=== PATIENT | female | born 1995 ===

== ENCOUNTER 2019-09-26 09:57 | Emergency (ER) | payer SELFPAY ==
[~2019-09-26] VITALS: Ht 154 cm; Wt 60.0 kg
--- NOTE | 2019-09-26 12:50 | ED GI ---
General Chief Complaint: Abdominal/GI Problems Stated Complaint: ABD PAIN;POSS Nursing Triage Note: Pt c/o abd pain x1 week. Reports sharp/cramping abd pain. Pt had positive test at home. LMP sometime in April Sepsis Screen: No Definite Risk History of Present Illness Date Seen by Provider: Sep 26, 2019 Time Seen by Provider: 12:30 Initial Comments 24 year old female presents with 1 week of abdominal pain, intermittent in the suprapubic region. She reports persistent positive hCG 1 week ago. She is G3, P3, A0. She denies any vaginal discharge, bleeding, or urinary symptoms. She is unsure of her blood type but denied having to get room drinking shots with her previous pregnancies. She has not been taking any medicine for the pain and is not currently taking any vitamin. Timing/Duration: 1 Week Severity/Quality: Mild Location: Suprapubic Radiation: No Radiation Associated Symptoms: Denies Symptoms Allergies and Home Medications Allergies Coded Allergies: No Known Drug Allergies (Unverified , 09/26/19) Patient Home Medication List Home Medication List Reviewed: Yes Review of Systems Review of Systems Constitutional: no symptoms reported, see HPI Gastrointestinal: See HPI, Abdominal Pain All Other Systems Reviewed Negative Unless Noted: Yes Past Aevjiup-Nhbcnm-Jggojh Hx Past Med/Social Hx: Reviewed Nursing Past Med/Soc Hx Patient Social History Alcohol Use: Denies Use Recreational Drug Use: No Smoking Status: Current Everyday Smoker Type Used: Cigarettes Recent Foreign Travel: No Contact w/Someone Who Travel: No Recent Infectious Disease Expo: No Recent Hopitalizations: No Immunizations Up To Date Date of Influenza Vaccine: Sep 12, 2019 Seasonal Allergies Seasonal Allergies: No Past Medical History Surgeries: Yes Section Respiratory: No Cardiac: No Neurological: No : Yes (per patient home HCG) Last Menstrual Period: Apr 25, 2019 Hx : 3 Hx Para: 3 Hx Total # of Abortions (Sp): 0 Reproductive Disorders: No Female Reproductive Disorders: Denies Genitourinary: No Gastrointestinal: No Musculoskeletal: No Endocrine: No HEENT: No Cancer: No Psychosocial: No Integumentary: No Blood Disorders: No Physical Exam Vital Signs Vital Signs - First Documented 09/26/19 12:04 Temp 36.9 Pulse 82 Resp 16 B/P (MAP) 106/66 (79) Pulse Ox 100 O2 Delivery Room Air Capillary Refill : Less Than 3 Seconds Height/Weight/BMI Height: '" Weight: lbs. oz. kg; 25.00 BMI Method: General Appearance: WD/WN, no apparent distress Respiratory: chest non-tender, lungs clear, normal breath sounds, no respiratory distress Cardiovascular: normal peripheral pulses, regular rate, rhythm Gastrointestinal: normal bowel sounds, soft; No distended, No guarding, No rebound; tenderness (suprapubic) Back: normal inspection, no CVA tenderness, no vertebral tenderness Neurologic/Psychiatric: no motor/sensory deficits, alert, normal mood/affect, oriented x 3 Skin: normal color, warm/dry Lymphatic: no adenopathy Progress/Results/Core Measures Results/Orders Lab Results Laboratory Tests Test 09/26/19 12:45 09/26/19 13:02 Range/Units Urine Color YELLOW Urine Clarity CLEAR Urine pH 8.0 5-9 Urine Specific [place] 1.010 L 1.016-1.022 Urine Protein NEGATIVE NEGATIVE Urine Glucose (UA) NEGATIVE NEGATIVE Urine Ketones NEGATIVE NEGATIVE Urine Nitrite NEGATIVE NEGATIVE Urine Bilirubin NEGATIVE NEGATIVE Urine Urobilinogen 0.2 < = 1.0 MG/DL Urine Leukocyte Esterase NEGATIVE NEGATIVE Urine RBC (Auto) NEGATIVE NEGATIVE Urine RBC RARE /HPF Urine WBC RARE /HPF Urine Squamous Epithelial Cells 0-2 /HPF Urine Crystals NONE /LPF Urine Bacteria NEGATIVE /HPF Urine Casts NONE /LPF Urine Mucus NEGATIVE /LPF Urine Culture Indicated NO Urine Test POSITIVE NEGATIVE White Blood Count 8.7 4.3-11.0 10^3/uL Red Blood Count 3.21 L 4.35-5.85 10^6/uL Hemoglobin 9.2 L 11.5-16.0 G/DL Hematocrit 29 L 35-52 % Mean Corpuscular Volume 89 80-99 FL Mean Corpuscular Hemoglobin 29 25-34 PG Mean Corpuscular Hemoglobin Concent 32 32-36 G/DL Red Cell Distribution Width 16.0 H 10.0-14.5 % Platelet Count 247 130-400 10^3/uL Mean Platelet Volume 9.6 7.4-10.4 FL Neutrophils (%) (Auto) 77 H 42-75 % Lymphocytes (%) (Auto) 17 12-44 % Monocytes (%) (Auto) 5 0-12 % Eosinophils (%) (Auto) 1 0-10 % Basophils (%) (Auto) 0 0-10 % Neutrophils # (Auto) 6.7 1.8-7.8 X 10^3 Lymphocytes # (Auto) 1.5 1.0-4.0 X 10^3 Monocytes # (Auto) 0.4 0.0-1.0 X 10^3 Eosinophils # (Auto) 0.1 0.0-0.3 10^3/uL Basophils # (Auto) 0.0 0.0-0.1 10^3/uL Sodium Level 139 135-145 MMOL/L Potassium Level 3.4 L 3.6-5.0 MMOL/L Chloride Level 108 H 98-107 MMOL/L Carbon Dioxide Level 22 21-32 MMOL/L Anion Gap 9 5-14 MMOL/L Blood Urea Nitrogen 6 L 7-18 MG/DL Creatinine 0.58 L 0.60-1.30 MG/DL Estimat Glomerular Filtration Rate > 60 BUN/Creatinine Ratio 10 Glucose Level 111 H 70-105 MG/DL Calcium Level 9.0 8.5-10.1 MG/DL Corrected Calcium 9.2 8.5-10.1 MG/DL Total Bilirubin 0.4 0.1-1.0 MG/DL Aspartate Amino Transf (AST/SGOT) 19 5-34 U/L Alanine Aminotransferase (ALT/SGPT) 17 0-55 U/L Alkaline Phosphatase 55 40-136 U/L Total Protein 6.9 6.4-8.2 GM/DL Albumin 3.7 3.2-4.5 GM/DL Human Chorionic Gonadotropin, Quant 67921 H <5 MIU/ML My Orders Orders - CADE MCCORMICK Ua Culture If Indicated (09/26/19 11:44) Cbc With Automated Diff (09/26/19 12:44) Comprehensive Metabolic Panel (09/26/19 12:44) Hcg,Qualitative Urine (09/26/19 12:44) Hcg,Quantitative (09/26/19 12:44) Abo Rh Type (09/26/19 12:44) Us Ob Preg Late(14-40wks)48747 (09/26/19 13:12) Vital Signs/I&O 09/26/19 09/26/19 12:04 14:50 Temp 36.9 36.8 Pulse 82 80 Resp 16 16 B/P (MAP) 106/66 (79) 96/67 Pulse Ox 100 100 O2 Delivery Room Air Room Air Blood Pressure Mean: 79 POS Progress Progress Note : Time: 12:30 Progress Note Patient evaluated, will obtain labs. If positive hCG will obtain ultrasound. 1400 blood type O+. Labs all within normal limits. Awaiting ultrasound results. 1430 US shows approximately 19 week gestation with no acute abnormalities. Results discussed with the patient. Discharge instructions and return precautions reviewed. Diagnostic Imaging Diagonstic Imaging: Ultrasound Comments NAME: RAJIV LARA [facility] REC#: [id number] PHYSICIAN: CADE MCCORMICK CC: AGUSTIN GILLILAND MD; CADE MCCORMICK Page 2 of 2 POS RADIOLOGY REPORT POS [facility]. POS [place], [place] POS CC: AGUSTIN GILLILAND MD; CADE MCCORMICK Page 1 of 2 POS RADIOLOGY REPORT POS NAME: RAJIV LARA [facility] REC#: [id number] PT STATUS: DEP ER : 1995 PHYSICIAN: CADE MCCORMICK ADMIT DATE: 09/26/19/ER Signed POSDate of Exam: 09/26/19 US OB PREG LATE(14-40WKS)[id number] INDICATION: Abdominal pain. TECHNIQUE: Multiple Real-time grayscale images were obtained over the gravid uterus. COMPARISON: None FINDINGS: There is a single live fetus in a cephalic presentation. The heart rate was recorded at 150 BPM. The placenta is anterior. The amniotic fluid volume is normal. Only a limited survey was performed. The kidneys, bladder, and stomach are unremarkable. There is a 4 chamber heart. A tiny echogenic focus in the left ventricle is seen. The maternal adnexa are unremarkable. MEASUREMENTS: Biometrical measurements are as follows: Biparietal 4.45 cm, age 19 weeks 4 days. Head circumference 16.73 cm, age 19 weeks 3 days. Abdominal circumference 14.28 cm, age 19 weeks 5 days. Femur length 3.06 cm, age 19 weeks 4 days. Sonographic estimate age: 19 weeks 4 days. Sonographic estimated date of delivery: 02/16/2020. Estimated Weight: 298 gm (+/- 44 gm). LMP percentile: 61%. heart rate: 150 beats per minute. number: 1 of 1. IMPRESSION: Single live IUP at 19 weeks 4 days gestational age. The estimated date of confinement sonographically is 02/16/2020. No definite complicating features are seen. Dictated by: Dictated on workstation # [id number] Dict: 09/26/19 1436 Trans: 09/26/19 1539 Interpreted by: AGUSTIN GILLILAND MD Electronically signed by: AGUSTIN GILLILAND MD 09/26/19 1539 Reviewed: Reviewed by Me Departure Impression Primary Impression: Qualified Codes: Z34.90 - Encounter for supervision of normal , unspecified, unspecified trimester Additional Impression: Lower abdominal pain Disposition: HOME, SELF-CARE Condition: Improved Departure-Patient Inst. Decision time for Depature: 14:30 Referrals: NO,LOCAL PHYSICIAN (PCP) Primary Care Physician [facility] Patient Instructions: Acute Abdomen (Belly Pain), Adult (DC), - The First Month Add. Discharge Instructions: Begin taking a vitamin, one daily. Establish care with an EMBALMER APPRENTICE. You may take Tylenol 650 mg every 8 hours for pain. All discharge instructions reviewed with patient and/or family. Voiced understanding. CADE MCCORMICK Sep 26, 2019 12:50 POS
[2019-09-26 12:52] LABS: BILIRUBIN,URINE NEGATIVE (NEGATIVE); CLARITY,URINE CLEAR; COLOR,URINE YELLOW; GLUCOSE, URINE (UA) NEGATIVE (NEGATIVE); KETONES,URINE NEGATIVE (NEGATIVE); LEUKOCYTE ESTERASE ,URINE NEGATIVE (NEGATIVE); NITRITE,URINE NEGATIVE (NEGATIVE); PROTEIN,URINE NEGATIVE (NEGATIVE)
[2019-09-26 12:59] LABS: BACTERIA,URINE NEGATIVE /HPF; RBC,URINE RARE /HPF; SQUAMOUS EPITHELIAL CELL,UR 0-2 /HPF; WBC,URINE RARE /HPF
[2019-09-26 13:09] LABS: BASOPHILS % (AUTO) 0 % (0-10); EOSINOPHILS # (AUTO) 0.1 10^3/uL (0.0-0.3); EOSINOPHILS % (AUTO) 1 % (0-10); HEMATOCRIT 29 % (35-52); HEMOGLOBIN 9.2 G/DL (11.5-16.0); LYMPHOCYTES # (AUTO) 1.5 X 10^3 (1.0-4.0); LYMPHOCYTES % (AUTO) 17 % (12-44); MEAN CORPUSCULAR HEMOGLOBIN 29 PG (25-34); MEAN CORPUSCULAR HGB CONC 32 G/DL (32-36); MEAN CORPUSCULAR VOLUME 89 FL (80-99); MEAN PLATELET VOLUME 9.6 FL (7.4-10.4); MONOCYTES # (AUTO) 0.4 X 10^3 (0.0-1.0); MONOCYTES % (AUTO) 5 % (0-12); NEUTROPHILS # (AUTO) 6.7 X 10^3 (1.8-7.8); NEUTROPHILS % (AUTO) 77 % (42-75); PLATELET COUNT 247 10^3/uL (130-400); WHITE BLOOD COUNT 8.7 10^3/uL (4.3-11.0)
[2019-09-26 13:35] LABS: ALANINE AMINOTRANSFERASE 17 U/L (0-55); ALBUMIN 3.7 GM/DL (3.2-4.5); ALKALINE PHOSPHATASE 55 U/L (40-136); BILIRUBIN,TOTAL 0.4 MG/DL (0.1-1.0); BUN/CREATININE RATIO 10; CARBON DIOXIDE 22 MMOL/L (21-32); CHLORIDE 108 MMOL/L (98-107); CREATININE SERUM 0.58 MG/DL (0.60-1.30); GFR ESTIMATED > 60; GLUCOSE 111 MG/DL (70-105); POTASSIUM 3.4 MMOL/L (3.6-5.0); SODIUM 139 MMOL/L (135-145); TOTAL PROTEIN 6.9 GM/DL (6.4-8.2)
--- NOTE | 2019-09-26 13:59 | NUR ---
Patient taken to Ultrasound via wheelchair.
--- NOTE | 2019-09-26 14:46 | Diagnostic Imaging Report ---
INDICATION: Abdominal pain. TECHNIQUE: Multiple Real-time grayscale images were obtained over the gravid uterus. COMPARISON: None FINDINGS: There is a single live fetus in a cephalic presentation. The heart rate was recorded at 150 BPM. The placenta is anterior. The amniotic fluid volume is normal. Only a limited survey was performed. The kidneys, bladder, and stomach are unremarkable. There is a 4 chamber heart. A tiny echogenic focus in the left ventricle is seen. The maternal adnexa are unremarkable. MEASUREMENTS: Biometrical measurements are as follows: Biparietal 4.45 cm, age 19 weeks 4 days. Head circumference 16.73 cm, age 19 weeks 3 days. Abdominal circumference 14.28 cm, age 19 weeks 5 days. Femur length 3.06 cm, age 19 weeks 4 days. Sonographic estimate age: 19 weeks 4 days. Sonographic estimated date of delivery: 02/16/2020. Estimated Weight: 298 gm (+/- 44 gm). LMP percentile: 61%. heart rate: 150 beats per minute. number: 1 of 1. IMPRESSION: Single live IUP at 19 weeks 4 days gestational age. The estimated date of confinement sonographically is 02/16/2020. No definite complicating features are seen. Dictated by: Dictated on workstation # [id number]
[2019-09-26 14:50] VITALS: BP 96/67
== END 2019-09-26 14:54 | disposition home or self-care (01) ==
LOC: ER 09:59
DX: O26.892 Other specified pregnancy related conditions, second trimester (principal); R10.30 Lower abdominal pain, unspecified; O99.332 Smoking (tobacco) complicating pregnancy, second trimester; F17.210 Nicotine dependence, cigarettes, uncomplicated; Z3A.19 19 weeks gestation of pregnancy
CPT/HCPCS: 36415; 76805; 80053; 81000; 84702; 84703; 85025; 86900; 86901

== ENCOUNTER 2019-12-30 12:09 | Outpatient (CLI) | payer MEDICAID ==
[~2019-12-30] VITALS: Ht 154.9 cm; Wt 73.2 kg
--- NOTE | 2019-12-30 12:15 | NUR ---
RAJIV LARA presented to unit via from ED, accompanied by self, with c/o VAGINAL BLEEDING. RAJIV LARA weighed, gowned, voided, and to bed. EFHM and TOCO applied, VS taken. RAJIV LARA oriented to bed controls, call light, TV, heat, and A/C controls.
[2019-12-30 12:45] VITALS: BP 105/56
--- NOTE | 2019-12-30 13:55 | NUR ---
EFM removed. reviewed plan for d/c home. 4 contractions noted right after cervical exam. no further contractions noted for the last hour.
--- NOTE | 2019-12-30 13:55 | NUR ---
reactive NST. accelerations noted. no decelerations, 130 fhr baseline.
--- NOTE | 2019-12-30 14:10 | NUR ---
out of WS via ambulation to private vehicle to home care d/c instructions in hand. no s/s of distress noted.
--- NOTE | 2020-01-02 08:07 | Physician Query-Final Dx ---
Clinic Account Progress/Dx Physician Query: Please give diagnosis Please include # weeks gestation Date of Service Dec 30, 2019 at 12:09 DIANNA MORAES Jan 02, 2020 08:07
== END 2019-12-30 14:10 | disposition home or self-care (01) ==
LOC: WSo 12:09 → LDRP 12:15 → WSo 14:10
PROVIDERS: ATTEND Family Medicine
DX: O46.90 Antepartum hemorrhage, unspecified, unspecified trimester (principal); Z3A.00 Weeks of gestation of pregnancy not specified
CPT/HCPCS: 99213

== ENCOUNTER 2020-02-10 05:29 | Outpatient (CLI) | payer MEDICAID ==
[~2020-02-10] VITALS: Ht 154 cm; Wt 73.6 kg
[2020-02-10] MEDS ORDERED: FERR-84 PO (12:23)
[2020-02-10] MEDS ORDERED: PREN1TAB79 PO (12:23)
[2020-02-13] MEDS ORDERED: HYDR-4226 PO (07:18)
[2020-02-13] MEDS ORDERED: IBUP-844 PO (07:18)
[2020-02-13] MEDS ORDERED: DCS100C PO (07:18)
== END 2020-02-10 12:40 | disposition home or self-care (01) ==
LOC: PREOP 05:29
PROVIDERS: ATTEND Obstetrics & Gynecology
DX: Z01.818 Encounter for other preprocedural examination (principal)

== ENCOUNTER 2020-02-13 06:37 | Inpatient (IN) | payer MEDICAID ==
[2020-02-13] VITALS (12 sets, daily range): BP systolic 98–137; BP diastolic 55–83
[~2020-02-13] VITALS: Ht 154 cm; Wt 75.0 kg
--- NOTE | 2020-02-13 06:35 | NUR ---
RAJIV LARA presented to unit via from ED, , with c/o PREVIOUS. RAJIV LARA 39 11/22 weighed, gowned, voided, and to bed. EFHM and TOCO applied, VS taken. RAJIV LARA oriented to bed controls, call light, TV, heat, and A/C controls.
[~2020-02-13 06:37] MED LIST: CITRIC ACID/SOB CIT (BICITRA) 30 ML UDC ONE; FAMOTIDINE 20MG/2ML IV (PEPCID) ONE; FERR-84 PO; LACTATED RINGERS 1,000 ML IV ONE; METOCLOPRAMIDE INJ 10 MG/2 ML (REGLAN) ONE; PREN1TAB79 PO; ceFAZolin 2 GM IV Premixed 50 ML ONE
--- OUTSIDE RECORDS SUMMARY | 2020-02-13 06:41 | XMS REPORT | Continuity of Care Document ---
Author Organization Unknown Address Unknown Phone Unavailable Allergies Active Description Code Type Severity Reaction Onset Reported/Identified Relationship to Patient Clinical Status Yes No Known Drug Allergies [id number] Drug Allergy Unknown N/A 02/10/2020 Medications There is no data. Problems Date Dx Coded Attending Type Code Diagnosis Diagnosed By 09/26/2019 ANNY, CADE COLOR TECHNICIAN Ot F17.210 NICOTINE DEPENDENCE, CIGARETTES, UNCOMPL 09/26/2019 ANNY, CADE COLOR TECHNICIAN Ot O26.892 OT RELATED CONDITIONS, SECOND 09/26/2019 ANNY, CADE COLOR TECHNICIAN Ot O99.332 SMOKING (TOBACCO) COMPLICATING 09/26/2019 ANNY, CADE COLOR TECHNICIAN Ot R10.30 LOWER ABDOMINAL PAIN, UNSPECIFIED 09/26/2019 ANNY, CADE COLOR TECHNICIAN Ot Z3A.19 19 WEEKS GESTATION OF 09/28/2019 ANNY CADE COLOR TECHNICIAN Ot F17.210 NICOTINE DEPENDENCE, CIGARETTES, UNCOMPL 09/28/2019 ANNY, CADE COLOR TECHNICIAN Ot O26.892 OT RELATED CONDITIONS, SECOND 09/28/2019 ANNY, CADE COLOR TECHNICIAN Ot O99.332 SMOKING (TOBACCO) COMPLICATING 09/28/2019 ANNY, CADE COLOR TECHNICIAN Ot R10.30 LOWER ABDOMINAL PAIN, UNSPECIFIED 09/28/2019 ANNY, CADE COLOR TECHNICIAN Ot Z3A.19 19 WEEKS GESTATION OF 12/30/2019 STEIN DO, ROSHNI K Ot O46.90 ANTEPARTUM HEMORRHAGE, UNSPECIFIED, UNSP 12/30/2019 STEIN DO, ROSHNI K Ot Z3A.00 WEEKS OF GESTATION OF NOT SPEC 01/03/2020 STEIN DO, ROSHNI K Ot O46.90 ANTEPARTUM HEMORRHAGE, UNSPECIFIED, UNSP 01/03/2020 STEIN DO, ROSHNI K Ot Z3A.00 WEEKS OF GESTATION OF NOT SPEC Procedures There is no data. Results Test Result Range Complete urinalysis with reflex to cultu re - 09/26/19 12:45 Urine color determination YELLOW NRG Urine clarity determination CLEAR NR G Urine pH measurement by test strip 8.0 5-9 Specific gravity of urine by test strip 1.010 1.016-1.022 Urine protein assay by test strip, semi-quantitative NEGATIVE NEGATIVE Urine glucose detection by automated test strip NE GATIVE NEGATIVE Erythrocytes detection in urine sediment by light micr oscopy NEGATIVE NEGATIVE Urine ketones detection by automated test strip NE GATIVE NEGATIVE Urine nitrite detection by test strip NEGATIVE NEGATIVE Urine total bilirubin detection by test strip NEGA TIVE NEGATIVE Urine urobilinogen measurement by automated test strip (mass/volume) 0.2 mg/dL < = 1.0 Urine leukocyte esterase detection by dipstick NEG ATIVE NEGATIVE Automated urine sediment erythrocyte cou nt by microscopy (number/high power field) RARE NRG Automated urine sediment leukocyte count by microscopy (number/high power field) RARE NRG Bacteria detection in urine sediment by light microsco py NEGATIVE NRG Squamous epithelial cells detection in u rine sediment by light microscopy 0-2 NRG Crystals detection in urine sediment by light microsco py NONE NRG Casts detection in urine sediment by light microscopy NONE NRG Mucus detection in urine sediment by light microscopy NEGATIVE NRG Complete urinalysis with reflex to culture NO NRG Urine beta human chorionic gonadotropin (hCG) measurement - 09/26/19 12:45 Urine beta human chorionic gonadotropin (hCG) measurem ent POSITIVE NEGATIVE Complete blood count (CBC) with automate d white blood cell (WBC) differential - 09/26/19 13:02 Blood leukocytes automated count (number/volume) 8.7 10*3/uL 4.3-11.0 Blood erythrocytes automated count (number/volume) 3.21 10*6/uL 4.35-5.85 Venous blood hemoglobin measurement (mass/volume) 9.2 g/dL 11.5-16.0 Blood hematocrit (volume fraction) 29 % 35-52 Automated erythrocyte mean corpuscular volume 89 [ foz_us] 80-99 Automated erythrocyte mean corpuscular h emoglobin (mass per erythrocyte) 29 pg 25-34 Automated erythrocyte mean corpuscular h emoglobin concentration measurement (mass/volume) 32 g/dL 32-36 Automated erythrocyte distribution width ratio 16. 0 % 10.0- 14.5 Automated blood platelet count (count/volume) 247 10*3/uL 130-400 Automated blood platelet mean volume measurement 9.6 [foz_us] 7.4-10.4 Automated blood neutrophils/100 leukocytes 77 % 42-75 Automated blood lymphocytes/100 leukocytes 17 % 12-44 Blood monocytes/100 leukocytes 5 % 0-12 Automated blood eosinophils/100 leukocytes 1 % 0-10 Automated blood basophils/100 leukocytes 0 % 0-10 Blood neutrophils automated count (number/volume) 6.7 10*3 1.8-7.8 Blood lymphocytes automated count (number/volume) 1.5 10*3 1.0-4.0 Blood monocytes automated count (number/volume) 0. 4 10*3 0.0-1.0 Automated eosinophil count 0.1 10*3/uL 0 .0-0.3 Automated blood basophil count (count/volume) 0.0 10*3/uL 0.0-0.1 ABO+Rh group - 09/26/19 13:02 WRISTBAND NUMBER BC [id number] NR ABO+Rh group OP NR Comprehensive metabolic panel - 09/26/19 13:02 Serum or plasma sodium measurement (moles/volume) 139 mmol/L 135-145 Serum or plasma potassium measurement (moles/volume) 3.4 mmol/L 3.6-5.0 Serum or plasma chloride measurement (moles/volume) 108 mmol/L 98-107 Carbon dioxide 22 mmol/L 21-32 Serum or plasma anion gap determination (moles/volume) 9 mmol/L 5-14 Serum or plasma urea nitrogen measurement (mass/volume ) 6 mg/dL 7-18 Serum or plasma creatinine measurement (mass/volume) 0.58 mg/dL 0.60-1.30 Serum or plasma urea nitrogen/creatinine mass ratio 10 NRG Serum or plasma creatinine measurement w ith calculation of estimated glomerular filtration rate > NRG Serum or plasma glucose measurement (mass/volume) 111 mg/dL 70-105 Serum or plasma calcium measurement (mass/volume) 9.0 mg/dL 8.5-10.1 Serum or plasma total bilirubin measurement (mass/volu me) 0.4 mg/dL 0.1-1.0 Serum or plasma alkaline phosphatase tamiko surement (enzymatic activity/volume) 55 U/L 40-136 Serum or plasma aspartate aminotransfera se measurement (enzymatic activity/volume) 19 U/L 5-34 Serum or plasma alanine aminotransferase measurement (enzymatic activity/volume) 17 U/L 0-55 Serum or plasma protein measurement (mass/volume) 6.9 g/dL 6.4-8.2 Serum or plasma albumin measurement (mass/volume) 3.7 g/dL 3.2-4.5 CALCIUM CORRECTED 9.2 mg/dL 8.5-10.1 Serum or plasma choriogonadotropin measu rement (units/volume) - 09/26/19 13:02 Serum or plasma choriogonadotropin measurement (units/ volume) 84742 m[iU]/mL <5 Encounters ACCT No. Visit Date/Time Discharge Status Pt. Type Provider Facility Loc./Unit Complaint [id number] 02/10/2020 05:29:00 020 12:40:00 DIS Outpatient DIONISIO DONG DO [facility] PREOP PREVIOUS [id number] 12/30/2019 12:09:00 020 14:10:00 DIS Outpatient ROSHNI STEIN DO [facility] WSo VAGINAL BLEEDING [id number] 09/26/2019 09:59:00 019 14:54:00 DIS Emergency CADE MCCORMICK [facility] ER ABD PAIN;POSS [id number] 02/13/2020 07:30:00 P EN Preadmit DIONISIO DONG DO PREVIOUS
[2020-02-13] MEDS ORDERED: ceFAZolin 2 GM IV Premixed 50 ML IV ONE ×2 (06:45→08:30)
[2020-02-13] MEDS ORDERED: CITRIC ACID/SOB CIT (BICITRA) 30 ML UDC PO ONE (06:45)
[2020-02-13] MEDS ORDERED: CATHETER FLUSH 10 ML SYR IV PRN (06:45)
[2020-02-13] MEDS ORDERED: METOCLOPRAMIDE INJ 10 MG/2 ML (REGLAN) IV ONE (06:45)
[2020-02-13 06:56] LABS: BASOPHILS % (AUTO) 0 % (0-10); EOSINOPHILS # (AUTO) 0.1 10^3/uL (0.0-0.3); EOSINOPHILS % (AUTO) 1 % (0-10); HEMATOCRIT 25 % (35-52); HEMOGLOBIN 7.4 G/DL (11.5-16.0); LYMPHOCYTES # (AUTO) 2.1 X 10^3 (1.0-4.0); LYMPHOCYTES % (AUTO) 28 % (12-44); MEAN CORPUSCULAR HEMOGLOBIN 24 PG (25-34); MEAN CORPUSCULAR HGB CONC 30 G/DL (32-36); MEAN CORPUSCULAR VOLUME 80 FL (80-99); MEAN PLATELET VOLUME 10.4 FL (7.4-10.4); MONOCYTES # (AUTO) 0.6 X 10^3 (0.0-1.0); MONOCYTES % (AUTO) 8 % (0-12); NEUTROPHILS # (AUTO) 4.8 X 10^3 (1.8-7.8); NEUTROPHILS % (AUTO) 63 % (42-75); PLATELET COUNT 301 10^3/uL (130-400); RED CELL DISTRIBUTION WIDTH 16.4 % (10.0-14.5); WHITE BLOOD COUNT 7.6 10^3/uL (4.3-11.0)
--- NOTE | 2020-02-13 07:07 | History & Physical-OB ---
OB - Chief Complaint & HPI Date/Time Date of Admission: Date of Admission: Feb 13, 2020 at 06:37 Date seen by a Provider: Feb 13, 2020 Time Seen by a Provider: 07:05 Chief Complaint/History OB-Reason for Admission/Chief: Section Hx : 4 Hx Para: 3 Expected Date of Delivery: Feb 19, 2020 Indication for : desires repeat Other reason for admission: Patient has sought PNC with [facility] and Dr. Escobar. Reports no concerns with , complicated by need for RLTCS and smoking. Admission Nurse Assessment Rev: Yes Allergies and Home Medications Allergies Coded Allergies: No Known Drug Allergies (Unverified , 02/10/20) Home Medications Ferrous Sulfate 325 Mg Tablet, 325 MG PO DAILY, (Reported) Vit W-Ca,Fe,FA(<1 mg) 1 Each Tablet, 1 EACH PO DAILY, (Reported) Patient Home Medication List Home Medication List Reviewed: Yes OB - History Hx of Present Care: Yes Ultrasounds: Normal mid trimester US Obstetrical Complications: None Medical Complications: None Delivery History Adverse Rxn to Tranfusion: No (N/A) Patient Past Medical History n/a Social History/Family History HIV/AIDS: No Recent Infectious Disease Expo: No Sexually Transmitted Disease: No Alcohol Use: Denies Use Recreational Drug Use: No 2nd Hand Smoke Exposure: Yes Immunizations Date of Influenza Vaccine: Aug 22, 2019 OB - Admission Exam Physical Exam HEENT: NCAT Heart: Rhythm Normal Lungs: Clear Abdomen: Gravid Extremities: Normal Reflexes: Normal Heart Rate: 130's Accelerations: Accelerations Present Decelerations: No Decelerations Short Term Variability: Present Assistant Center Director Variability: Average (6-25) Contractions on Admission: >10 Minutes Apart Intensity: Mild Labs Laboratory Tests Test 02/13/20 06:40 Range/Units White Blood Count 7.6 4.3-11.0 10^3/uL Red Blood Count 3.10 L 4.35-5.85 10^6/uL Hemoglobin 7.4 L 11.5-16.0 G/DL Hematocrit 25 L 35-52 % Mean Corpuscular Volume 80 80-99 FL Mean Corpuscular Hemoglobin 24 L 25-34 PG Mean Corpuscular Hemoglobin Concent 30 L 32-36 G/DL Red Cell Distribution Width 16.4 H 10.0-14.5 % Platelet Count 301 130-400 10^3/uL Mean Platelet Volume 10.4 7.4-10.4 FL Neutrophils (%) (Auto) 63 42-75 % Lymphocytes (%) (Auto) 28 12-44 % Monocytes (%) (Auto) 8 0-12 % Eosinophils (%) (Auto) 1 0-10 % Basophils (%) (Auto) 0 0-10 % Neutrophils # (Auto) 4.8 1.8-7.8 X 10^3 Lymphocytes # (Auto) 2.1 1.0-4.0 X 10^3 Monocytes # (Auto) 0.6 0.0-1.0 X 10^3 Eosinophils # (Auto) 0.1 0.0-0.3 10^3/uL Basophils # (Auto) 0.0 0.0-0.1 10^3/uL OB - Assessment/Plan/Diagnosis Assessment Assessment: section Admission Dx 25 yo @ 39.1 Previous Tobacco use in Admission Status: Inpatient Order (span 2 midnights) Reason for Inpatient Admission: Repeat DIONISIO DONG DO Feb 13, 2020 07:07
[2020-02-13] MEDS ORDERED: fentaNYL INJECTION 100 MCG/2 ML AMP ONE (07:09)
[2020-02-13] MEDS ORDERED: METHYLERGONOVINE 0.2 MG/ML (METHERGINE) AMP ONE (07:12)
[2020-02-13] MEDS: KETOROLAC 30 MG/ML VIAL IV SCH ×4 (07:12→23:56)
[2020-02-13] MEDS ORDERED: OXYTOCIN PRE-MIX DRIP 1,000 ML IV ONE (07:12)
[2020-02-13] MEDS ORDERED: MEASLES,MUMPS,RUBELLA 1 EA INJ SC SCH (07:15)
[2020-02-13] MEDS ORDERED: ONDANSETRON 4 MG/2 ML (SDV) Z0FRAN IVP PRN (07:15)
[2020-02-13] MEDS ORDERED: TETANUS,DIPTH,PERTUSS P/F (BOOSTRIX) 0.5 ML VIAL IM SCH (07:15)
[2020-02-13] MEDS ORDERED: HYDR-4226 PO (07:18)
[2020-02-13] MEDS ORDERED: DCS100C PO (07:18)
[2020-02-13] MEDS ORDERED: IBUP-844 PO (07:18)
--- NOTE | 2020-02-13 07:23 | Discharge Inst-Women's Service ---
Discharge Inst-Women's Serv Depart Medication/Instructions New, Converted or Re-Newed RX: RX on Chart Final Diagnosis POD 2 RLTCS Problems Reviewed?: Yes Consults/Follow Up Additional Follow Up: Yes Orders/Referrals Dr. Dong in 7-10 days and in 8 weeks Activity Activity: Activity as Tolerated Driving Instructions: No Driving for 1 Week NO SMOKING: NO SMOKING Nothing Inside Vagina: No Douching, No [place], No Tampons Diet Discharge Diet: No Restrictions Symptoms to Report to : Bleeding Excessive, Pain Increased, Fever Over 101 Degrees F, Vaginal Bleeding Increase, Questions/Concerns DIONISIO DONG DO Feb 13, 2020 07:23
--- NOTE | 2020-02-13 07:34 | NUR ---
Pt ambulated to surgery suite. Accompanied via Sunni Paez RN. IV infusing with out difficulty.
[2020-02-13] MEDS ORDERED: ONDANSETRON 4 MG/2 ML (SDV) Z0FRAN ONE (08:11)
[2020-02-13] MEDS ORDERED: BUPIVACAINE 0.5% 30 ML (SENSORCAINE) VIAL ONE (08:11)
[2020-02-13] MEDS: DOCUSATE SODIUM 100 MG (COLACE) CAP PO SCH ×2 (09:00→19:43)
[2020-02-13] MEDS ORDERED: NALOXONE 0.4 MG/ML 1 ML (NARCAN) VIAL IV PRN (09:15)
[2020-02-13] MEDS ORDERED: ONDANSETRON 4 MG/2 ML (SDV) Z0FRAN IV PRN (09:15)
[2020-02-13] MEDS ORDERED: diphenhydrAMINE 50 MG/ML INJ (BENADRYL) IV PRN (09:15)
--- NOTE | 2020-02-13 09:50 | NUR ---
Soco care and pad change in PACU.
--- NOTE | 2020-02-13 10:00 | NUR ---
Pt to room 307 via bed. Pt awake and alert. IV infusing without difficulty. Call light within reach. calf scd's on. Bed rails up x 2. Pt oriented to room and given education folder with instruction. Pt verbalizes understanding.
[2020-02-13] MEDS: METOCLOPRAMIDE 10 MG (REGLAN) TAB PO SCH ×2 (11:12→18:43)
[2020-02-13] MEDS: HYDROcodone/APAP 5 MG/325 MG (LORTAB) TAB PO PRN ×2 (11:13→16:34)
[2020-02-13] MEDS ORDERED: OXYTOCIN PRE-MIX DRIP 500 ML IV SCH ×2 (11:30)
[2020-02-13] MEDS: CATHETER FLUSH 10 ML SYR IV SCH ×2 (14:00→18:44)
--- NOTE | 2020-02-13 16:08 | NUR ---
Pt up to BR without difficulty. Voided 600 cc of blood tinged urine. Pt stable on. no concerns voiced. julian care done via pt.
--- NOTE | 2020-02-13 16:14 | OPERATIVE REPORT ---
DATE OF SERVICE: PREOPERATIVE DIAGNOSES: 1. A 25-year-old G4, P3 at 39 weeks gestation. 2. Previous section. POSTOPERATIVE DIAGNOSES: 1. A 25-year-old G4, P3 at 39 weeks gestation. 2. Previous section. PROCEDURE: Repeat low transverse section. SURGEON: Jose Wilkins DO GLOBAL TRANSPORTATION MANAGER: Dr. Diego Escobar, who was necessary for retraction and manipulation throughout the procedure. ANESTHESIA: Spinal. ESTIMATED BLOOD LOSS: 600 mL. URINE OUTPUT: 100 mL clear at the end of procedure. FLUIDS: Two liters of lactated Ringer's solution. FINDINGS: A live female infant weighing 8 pounds 1 ounce, Apgars of 8 and 9. Grossly normal appearing uterus, bilateral fallopian tubes and ovaries. SPECIMEN SENT: None. INDICATIONS FOR PROCEDURE: This 25-year-old female is a patient that was consulted to me from Dr. Escobar for repeat . In her preoperative consultation, the patient reported that her was uncomplicated with the exception of tobacco use throughout the . I discussed with the patient the risks of the surgery in detail, which she was familiar with including risk of bleeding, infection, damage to surrounding structures including, but not limited to bowel, bladder, ureter, kidneys, risk from anesthesia, hospital stay and possible need for reoperation and even . After everything was discussed with the patient in detail, consent was obtained in the preoperative area and the patient was taken to the operating room. OPERATIVE REPORT IN DETAIL: Once in the operating room, spinal anesthesia was found to be adequate, she was placed in supine position with a leftward tilt, prepped and draped in a normal sterile fashion. A timeout was performed and anesthesia was tested. I then proceeded to make a Pfannenstiel skin incision to the previously existing scar using a knife and carried down to underlying fascia using Bovie cautery. The fascial incision was extended laterally using Bovie cautery. The superior aspect of the fascial incision was then grasped with Ronna clamps, tented upward and dissected off the underlying rectus muscles. The inferior aspect of the fascial incision was then grasped with Ronna clamps, tented upward and dissected off the underlying rectus muscles. Rectus muscle was then dissected down the midline, which exposed the peritoneum, which I entered bluntly and extended using blunt traction. The peritoneum was densely scarred to the rectus muscles as well. Once I had peritoneal access, I extended this with blunt traction staying clear of the bladder and placed the Wilian ring retractor within the peritoneal incision, which offers excellent lateral sidewall retraction. I then proceeded with making a low transverse incision to the vesicouterine peritoneum using a knife and bluntly dissected this off of the lower uterine segment. I then proceeded with myotomy until membranes were visualized, at which point I extended the uterine incision laterally and superiorly using bandage scissors. Amniotomy was performed in this process as well. The infant was found in the vertex presentation and clear fluid was noted. With gentle fundal pressure, the infant's head was delivered through the incision where the nares and oropharynx were then bulb suctioned. Anterior and posterior shoulders were delivered. The was then brought to the operative field where the cord was doubly clamped and cut and infant was handed off to Dr. Escobar, who was present for delivery. Cord blood was collected, 3-vessel cord with intact placenta was delivered spontaneously thereafter. IV Pitocin was initiated to facilitate uterine contraction. Uterine fundus became firmer by manual massage. The uterus was then exteriorized and cleared of all endometrial clots and debris. I then proceeded with closing the uterine incision using 0 Vicryl suture in running locked fashion. Second layer of imbricating 0 Monocryl was placed. Excellent hemostasis was noted after doing this. I then placed the uterus back within the pelvis and copiously irrigated the pelvis using normal saline. Once again, there was no active bleeding noted from any of my dissection planes. I placed Interceed antiadhesive over my low transverse incision and proceeded with closing the peritoneum and rectus muscles in one layer using 3-0 Vicryl suture in a running fashion. The fascia was reapproximated using 0 Vicryl suture in a running fashion. Subcutaneous tissue was thin and therefore not reapproximated, but the skin was reapproximated using 4-0 Monocryl in a running subcuticular. Dermabond was applied to incision and sterile dressing with adhesive white tape. The patient tolerated the procedure well and sent to recovery in stable condition. Lap and sponge counts were correct at the end of the procedure. Instrument count was correct as well. Two grams of Ancef were given preoperatively for infection prophylaxis. Job ID: [id number] DocumentID: [id number] Dictated Date: 02/13/2020 11:09:39 Assistant Purchasing Manager Date: 02/13/2020 16:13:38 Dictated By: DO HERBERT SMITH
--- NOTE | 2020-02-13 16:48 | NUR ---
report received from ISMA Love.
--- NOTE | 2020-02-13 19:03 | NUR ---
report given to Karime Olivia.
--- NOTE | 2020-02-13 20:07 | NUR ---
pt resting in bed, assessment completed. pt denies any needs at this time. will continue to monitor.
[2020-02-14 03:48] VITALS: BP 99/57
[2020-02-14] MEDS: KETOROLAC 30 MG/ML VIAL IV SCH (05:39)
[2020-02-14 05:40] LABS: BASOPHILS % (AUTO) 0 % (0-10); EOSINOPHILS # (AUTO) 0.1 10^3/uL (0.0-0.3); EOSINOPHILS % (AUTO) 1 % (0-10); HEMATOCRIT 22 % (35-52); LYMPHOCYTES % (AUTO) 16 % (12-44); MEAN CORPUSCULAR HEMOGLOBIN 24 PG (25-34); MEAN CORPUSCULAR HGB CONC 30 G/DL (32-36); MEAN CORPUSCULAR VOLUME 81 FL (80-99); MEAN PLATELET VOLUME 9.5 FL (7.4-10.4); MONOCYTES # (AUTO) 0.7 X 10^3 (0.0-1.0); MONOCYTES % (AUTO) 6 % (0-12); NEUTROPHILS # (AUTO) 9.4 X 10^3 (1.8-7.8); NEUTROPHILS % (AUTO) 77 % (42-75); PLATELET COUNT 257 10^3/uL (130-400); RED CELL DISTRIBUTION WIDTH 16.8 % (10.0-14.5); WHITE BLOOD COUNT 12.1 10^3/uL (4.3-11.0)
[2020-02-14 05:47] LABS: HEMOGLOBIN 6.6 G/DL (11.5-16.0)
[2020-02-14 07:35] VITALS: BP 108/65
[2020-02-14] MEDS: METOCLOPRAMIDE 10 MG (REGLAN) TAB PO SCH ×2 (07:35→13:07)
[2020-02-14] MEDS: HYDROcodone/APAP 5 MG/325 MG (LORTAB) TAB PO PRN ×4 (07:35→19:28)
[2020-02-14] MEDS: DOCUSATE SODIUM 100 MG (COLACE) CAP PO SCH ×2 (07:35→19:27)
[2020-02-14] MEDS ORDERED: FERR325T18 PO (07:48)
--- NOTE | 2020-02-14 07:50 | Postpartum Progress Note ---
Note Note Day # 1 Subjective: Patient is without complaints. Ambulating, voiding. Tolerating a regular diet without nausea or vomiting. Normal lochia. Pain is well controlled with oral pain medications. Objective: Physical Exam: General - Alert and oriented, no apparent distress Abdomen - Soft, appropriately tender to palpation, non-distended, fundus firm at umbilicus Extremities - no edema, negative Jesús's bilaterally Incision c/d/i Assessment: POD 1 RLTCS Acute blood loss anemia superimposed on chronic anemia of Plan: Routine care. Encourage breast feeding. Encourage ambulation. Ferrous sulfate supplementation. Plan for discharge tomorrow Vitals - Labs Vital Signs - I&O Vital Signs Date Time Temp Pulse Resp B/P (MAP) Pulse Ox O2 Delivery O2 Flow Rate FiO2 02/14/20 03:48 36.4 83 18 99/57 (71) 98 Room Air 02/13/20 23:57 36.4 80 18 98/55 (69) 98 Room Air 02/13/20 19:49 36.6 80 18 106/62 (77) 98 Room Air 02/13/20 16:01 36.5 70 18 103/66 (78) 100 Room Air 02/13/20 12:18 98 Room Air 02/13/20 12:00 36.7 79 18 99/58 (72) 99 Room Air 02/13/20 10:45 36.4 83 18 113/83 (93) 100 Room Air 02/13/20 10:15 36.4 67 20 137/59 (85) 100 Room Air 02/13/20 09:55 Room Air 02/13/20 09:55 36.1 18 125/81 (96) 100 Room Air 02/13/20 09:40 Room Air 02/13/20 09:40 36.1 18 115/79 (91) 100 Room Air 02/13/20 09:25 Room Air 02/13/20 09:25 36.5 18 114/62 (79) 99 Room Air 02/13/20 09:10 Room Air 02/13/20 09:10 36.5 18 120/73 (89) 100 Room Air 02/13/20 08:55 36.1 20 116/58 (77) 100 Room Air 02/13/20 08:51 Room Air I & O 02/14/20 07:00 Intake Total 2100 ml Output Total 1600 ml Balance 500 ml Labs Laboratory Tests 02/14/20 05:34: White Blood Count 12.1H, Red Blood Count 2.78L, Hemoglobin 6.6*L, Hematocrit 22L , Mean Corpuscular Volume 81, Mean Corpuscular Hemoglobin 24L, Mean Corpuscular Hemoglobin Concent 30L, Red Cell Distribution Width 16.8H, Platelet Count 257, Mean Platelet Volume 9.5, Neutrophils (%) (Auto) 77H, Lymphocytes (%) (Auto) 16, Monocytes (%) (Auto) 6, Eosinophils (%) (Auto) 1, Basophils (%) (Auto) 0, Neutrophils # (Auto) 9.4H, Lymphocytes # (Auto) 2.0, Monocytes # (Auto) 0.7, Eosinophils # (Auto) 0.1, Basophils # (Auto) 0.0 DIONISIO DONG DO Feb 14, 2020 07:50
[2020-02-14] MEDS: FERROUS SULF 325 MG (IRON) TAB PO SCH ×3 (08:20→17:29)
--- NOTE | 2020-02-14 10:19 | Anesthesia-Regional Post-Op ---
Regional Patient Condition Mental Status: Alert, Oriented x3 Circulation: Same as Pre-Op Headache: Absent Sensation: Full Recovery Motor Block: Absent Post Op Complications Complications None Follow Up Care/Instructions Patient Instructions None needed. Anesthesia/Patient Condition Patient is doing well, no complaints, stable vital signs, no apparent adverse anesthesia problems. No complications reported per nursing. BEA DUBON CRNA Feb 14, 2020 10:19
[2020-02-14] MEDS: IBUPROFEN 600 MG (MOTRIN) TAB PO SCH ×2 (13:07→19:26)
[2020-02-14 17:30] VITALS: BP 110/66
[2020-02-14 19:26] VITALS: BP 105/67
[2020-02-15] MEDS: IBUPROFEN 600 MG (MOTRIN) TAB PO SCH ×2 (02:06→08:18)
[2020-02-15 02:07] VITALS: BP 104/63
[2020-02-15 08:15] VITALS: BP 104/56
--- NOTE | 2020-02-15 08:15 | NUR ---
ASSESSMENT COMPLETED. VSS. CARING FOR IN ROOM. BREASTFEEDS WELL.
[2020-02-15] MEDS: METOCLOPRAMIDE 10 MG (REGLAN) TAB PO SCH (08:18)
[2020-02-15] MEDS: FERROUS SULF 325 MG (IRON) TAB PO SCH (08:18)
[2020-02-15] MEDS: DOCUSATE SODIUM 100 MG (COLACE) CAP PO SCH (08:18)
[2020-02-15] MEDS: HYDROcodone/APAP 5 MG/325 MG (LORTAB) TAB PO PRN (08:22)
--- NOTE | 2020-02-15 08:45 | NUR ---
DR. DONG HERE TO SEE PT.
--- NOTE | 2020-02-15 08:45 | Postpartum Progress Note ---
Note Note Day # 2 Subjective: Patient is without complaints. Ambulating, voiding. Tolerating a regular diet without nausea or vomiting. Normal lochia. Pain is well controlled with oral pain medications. Objective: Physical Exam: General - Alert and oriented, no apparent distress Abdomen - Soft, appropriately tender to palpation, non-distended, fundus firm at umbilicus Extremities - no edema, negative Jesús's bilaterally Incision- c/d/i Assessment: POD 2 RLTCS Acute blood loss anemia superimposed anemia of . Plan: Routine care. Encourage breast feeding. Encourage ambulation. Ferrous sulfate supplementation. Plan for discharge today Vitals - Labs Vital Signs - I&O Vital Signs Date Time Temp Pulse Resp B/P (MAP) Pulse Ox O2 Delivery O2 Flow Rate FiO2 02/15/20 08:15 36.9 81 18 104/56 (72) 98 Room Air 02/15/20 02:07 36.8 81 16 104/63 (77) 96 Room Air 02/14/20 19:26 37.0 89 16 105/67 (80) 96 Room Air 02/14/20 17:30 37.0 76 16 110/66 (81) 99 Room Air DIONISIO DONG DO Feb 15, 2020 08:45
--- NOTE | 2020-02-15 11:15 | NUR ---
DISCHARGE INSTRUCTIONS REVIEWED WITH COPY GIVEN. STATES UNDERSTANDING OF ALL INSTRUCTIONS AND NEED TOO F/U SCHEDULED AND NEEDED.
[2020-02-15 11:45] VITALS: BP 104/56
--- NOTE | 2020-02-15 11:45 | NUR ---
DISMISSED AMB FROM [facility] WITH IN STABLE CONDITION TO [facility] BY LIZETTE ASHBY.
== END 2020-02-15 11:45 | disposition home or self-care (01) | DRG 787 ==
LOC: LDRP 06:37
PROVIDERS: ADMIT Obstetrics & Gynecology; ATTEND Obstetrics & Gynecology
PROC: 10D00Z1 Extraction of Products of Conception, Low, Open Approach (ICD-10-PCS; principal; 2020-02-13 07:37)
DX: O34.211 Maternal care for low transverse scar from previous cesarean delivery (principal); O99.334 Smoking (tobacco) complicating childbirth; F17.200 Nicotine dependence, unspecified, uncomplicated; O99.03 Anemia complicating the puerperium; D64.9 Anemia, unspecified; O90.81 Anemia of the puerperium; D62 Acute posthemorrhagic anemia; Z37.0 Single live birth; Z3A.39 39 weeks gestation of pregnancy
CPT/HCPCS: 36415; 85025; 86850; 86900; 86901; 94664